=== PATIENT | male | born 1965 | race Caucasian/White ===

== ENCOUNTER 2019-11-11 10:23 | Emergency (ER) | payer OTHER, SELFPAY ==
[2019-11-11 10:28] VITALS: BP 141/91; PULSE 78; RESP 19; TEMP 36.6; O2SAT 98; BMI 24.1
--- NOTE | 2019-11-11 10:32 | ED_ITS ---
Entered by Barbara Acosta, acting as scribe for HPI - General Adult General: Chief complaint: Allergic Reaction Stated complaint: STING AND USED EPI Time Seen by Provider: 11/11/19 10:34 History of Present Illness: HPI narrative: 53 yo male presents with wasp sting. Pt states that he used his Epi. Pt states that he is nauseated right now. Pt states that he has severe allergic reactions to wasp stings, that's why has the Epi. Pt states that he used the Epi at about 0635am. Pt states that his breathing feels okay. MD complaint: wasp sting, epi use Onset (ago): hour(s) (4) Location: upper extremity Associated symptoms: Deny chest pain, dyspnea, malaise, nausea, rash or vomiting Review of Systems Const: Denies: fever, chills, body aches, change in appetite, fatigue or malaise ENMT: Denies: throat pain, ear pain, nasal discharge or nasal congestion Card: Denies: chest pain, edema, shortness of breath on exertion or shortness of breath when lying down Resp: Denies: shortness of breath, productive cough or non-productive cough GI: Denies: abdominal pain, nausea, vomiting, vomiting blood, coffee grounds in vomit, diarrhea, constipation, bloating, blood in stool or black tarry stool : Denies: flank pain, painful urination, urinary frequency or urinary urgency Skin/Breast: Denies: rash or itching PFSH ED PFSH: Social History Smoking and tobacco status: never smoked Physical Exam Const: COMMON NORMALS: no apparent distress GENERAL APPEARANCE: cooperative and comfortable ORIENTATION/CONSCIOUSNESS: Yes awake, Yes oriented to person, Yes oriented to place and Yes oriented to time HENMT: COMMON NORMALS: normocephalic, head/scalp atraumatic, hearing grossly normal bilaterally, external ears normal, EAC's normal, TM's normal bilaterally, nasal mucous membranes and turbinates normal, moist oral mucous membranes and oropharynx normal HEAD & SCALP: normocephalic and atraumatic NOSE: nasal mucous membranes and turbinates normal EXTERNAL EAR: Yes external ears normal EXTERNAL AUDITORY CANAL: EAC's normal TYMPANIC MEMBRANE: TM's normal bilaterally Eye: COMMON NORMALS: PERRL, EOMs intact bilaterally, conjunctivae normal and no scleral icterus CONJUNCTIVA: Yes conjunctivae normal PUPIL: Yes PERRL Neck/C-Spine: COMMON NORMALS: full ROM, no lymphadenopathy, supple and no JVD Lymph: LYMPHATIC: no lymphadenopathy noted and no lymphedema noted Resp: COMMON NORMALS: normal respiratory effort, no retractions, no use of accessory muscles and clear to auscultation bilaterally AUSCULTATION: clear to auscultation bilaterally Cardio: COMMON NORMALS: no JVD, regular rate, regular rhythm and no murmurs RATE: regular rate RHYTHM: regular rhythm GI: COMMON NORMALS: soft to palpation and no hepatosplenomegaly AUSCULTATION: Yes normoactive bowel sounds PALPATION: Yes soft, No tender, No guarding and Yes no hepatosplenomegaly Extremity: COMMON NORMALS: normal to inspection, normal capillary refill, no clubbing, cyanosis or edema, no calf tenderness and no pedal edema Neuro: SENSORIUM/ORIENTATION: Yes oriented to person, Yes oriented to place and Yes oriented to time Skin: NARRATIVE SKIN EXAM: Localized swelling to the heel of the left hand in the distal volar forearm no erythema no induration. Course Vital Signs: Vital signs: Vital Signs Temperature 97.8 F 11/11/19 10:28 Pulse Rate 68 11/11/19 12:00 Respiratory Rate 17 11/11/19 12:00 Blood Pressure 112/68 11/11/19 12:00 Pulse Oximetry 98 11/11/19 12:00 MDM - General Adult MDM Narrative: Medical decision making narrative: Localized reaction to an insect sting on his left arm there is only moderate swelling. He has no respiratory difficulties no tachycardia use the EpiPen about 4-1/2 or more hours ago we will go ahead and discharge him home have him follow-up with primary care and given a prescription for 2 EpiPen's. Discharge Plan Discharge Patient Disposition: Home, Self-Care Clinical Impression: Allergic reaction to insect sting Condition: Stable Prescriptions: New Medrol (Riaz) 4 mg tablets,dose pack See Rx Instructions .ROUTE .COMPLEX Qty: 21 RF: 0 hydroxyzine HCl 25 mg tablet 25 mg PO Q6H PRN (Reason: itching) Qty: 20 RF: 0 epinephrine 0.3 mg/0.3 mL auto-injector 0.3 mg IM Q15M PRN (Reason: anaphylaxis) 2 Days Qty: 2 RF: 0 Discharge Orders: Discharge Order (Routine); Ordered 11/11/19 Ordered By: Justin Baird Discharge Diet: Usual diet Discharge Activity: Resume usual activity Activity Restrictions/Additional Instructions: Follow-up with your primary care doctor as needed Discharge Date/Time: 11/11/19 12:00 Coding Level of Care Code ED Printing Mechanist for Chg Fwd Exam Comprehensive The documentation recorded by the Dave goddard Kialy, accurately reflects the service I personally performed and the decisions made by , Justin Baird, Nov 11, 2019 10:23
[2019-11-11 10:38] VITALS: O2SAT 99
--- NOTE | 2019-11-11 10:46 | ECG_ITS ---
Measurements Intervals [place] Rate: 72 P: 43 [place]: 159 QRS: 57 QRSD: 82 T: 53 QT: 368 QTc: 405 SINUS RHYTHM No previous ECG available for comparison Electronically Signed On 11-12-2019 9:42:42 CDT by Alia Gupta M.D. [email or web address]
[2019-11-11] MEDS: diphenhydrAMINE 50 mg Capsule PO (10:49)
[2019-11-11 12:00] VITALS: BP 112/68; PULSE 68; RESP 17; O2SAT 98
--- NOTE | 2019-11-14 10:31 | DCPLANNER ---
unit manager had message to speak with patient about getting established with a primary care physician. unit manager called patient at phone number [phone], was unable to speak with patient at this time. unit manager left a voicemail for patient to return embedded case manager phone call.
== END 2019-11-11 12:00 | disposition home or self-care (01) ==
PROVIDERS: Emergency Provider Family Medicine; Family Provider Family Medicine; PCP Family Medicine
DX: T63.461A Toxic effect of venom of wasps, accidental (unintentional), initial encounter (principal); M79.89 Other specified soft tissue disorders
CPT/HCPCS: 12345; 93005; 96374; 96375; 99283; J2930; Q0163

== ENCOUNTER → 2020-09-12 14:24 | Outpatient (BNVA) | payer OTHER, SELFPAY | PROVIDERS: Family Provider Family Medicine; PCP Family Medicine; Visit Provider Family Medicine | DX: Z20.828 Contact with and (suspected) exposure to other viral communicable diseases (principal) | CPT/HCPCS: 87635 ==

== ENCOUNTER 2020-10-17 09:00 | Outpatient (CLI) | payer OTHER, SELFPAY ==
--- NOTE | 2020-10-17 09:00 | CT_ITS ---
WS: [id number] CT ABDOMEN PELVIS TECHNIQUE: Contrast-enhanced CT of the abdomen and pelvis with coronal and sagittal reformatted image s. CLINICAL INFORMATION: ABDOMINAL PAIN, DIARRHEA, FUNCTIONAL COMPARISON: 2 25,019 DLP: 1005.[address] scans at [facility] use at least one of these dose optimization techniques: automat ed exposure control; mA and/or kV adjustment per patient size (includes targeted exams where dose is matched to clinical indication); or iterative reconstruction. FINDINGS: Diffuse fatty infiltration of the liver. Portal vein and splenic vein are patent. Slight hazy groundg lass infiltrates in the lung bases. Recommend correlation for pneumonitis. Adrenal glands are normal. Normal spleen. Normal pancreas. Gallbladder is normal. Normal caliber abdominal aorta. Adrenal glands are normal. Normal renal parenchymal enhancement. No h ydronephrosis. No abdominal or pelvic lymphadenopathy. Tiny fat-containing umbilical hernia. Sigmoid diverticulosis. No evidence of acute diverticulitis. No evidence of small or large bowel obst ruction. Dense right colon and transverse colon constipation. Prominent prostate with calcification m easuring 3.9 cm. Disc space narrowing worse L5-S1. Central disc protrusion L3-4 with moderate central canal stenosis. Mild central canal stenosis L5-S1. CT/CT abdomen pelvis w con* [id number] IMPRESSION: 1. Diffuse fatty infiltration of the liver 2. Normal renal parenchymal enhancement. No hydronephrosis. 3. Dense right colon and transverse colon constipation. 4. Diverticulosis sigmoid colon. No evidence of acute diverticulitis. 5. Slightly prominent prostate measuring 3.8 cm. Recommend correlation PSA. 6. No other significant findings.
[2020-10-17] MEDS: iohexol 300 mg/mL 50 mL Btl PO (09:13)
[2020-10-17] MEDS: iohexol 300 mg/mL 100 mL Btl IV (10:56)
== END 2020-10-17 09:01 | disposition home or self-care (01) ==
LOC: RADWPI 09:04
PROVIDERS: PCP Family Medicine; Visit Provider Family Medicine
DX: R10.9 Unspecified abdominal pain (principal); K59.1 Functional diarrhea; N40.0 Benign prostatic hyperplasia without lower urinary tract symptoms; K57.30 Diverticulosis of large intestine without perforation or abscess without bleeding; K76.0 Fatty (change of) liver, not elsewhere classified
CPT/HCPCS: 74177; Q9967

== ENCOUNTER → 2020-11-01 10:49 | Outpatient (BNVA) | payer OTHER, SELFPAY | PROVIDERS: PCP Family Medicine; Visit Provider Surgery | DX: R19.4 Change in bowel habit (principal); Z20.822 Contact with and (suspected) exposure to COVID-19 | CPT/HCPCS: 87635 ==

== ENCOUNTER 2020-12-04 06:58 | Day surgery (SDC) | payer OTHER, SELFPAY ==
[2020-12-04 07:30] VITALS: BP 127/82; PULSE 87; RESP 18; TEMP 36.2; O2SAT 99
[2020-12-04 07:39] LABS: Glucose Point of Care 148 mg/dL (70-110)
--- NOTE | 2020-12-04 07:51 | ANES.PREANE2 ---
Pre-Anesthetic Assessment Pre-Anesthetic Assessment: Height/Weight: Height 1.65 m Weight 65.771 kg Temp Pulse Resp BP Pulse Ox 97.1 F L 87 18 127/82 99 12/04/20 07:30 12/04/20 07:30 12/04/20 07:30 12/04/20 07:30 12/04/20 07:30 Preop Diagnosis: diagnostic Proposed Procedure: Operation Date: 12/04/20 08:30 Proposed Procedures p Colonoscopy 03774 R19.4(Not Applicable) - Aravind Richter MD Was Beta Bryan taken within 24 hours: N/A Was Clonidine taken within 24 hours: N/A Last intake: Intake Last Liquid Date 12/04/20 Last Liquid Time 01:30 Last Solid Date 12/02/20 Last Solid Time 18:00 Social: Social History: No alcohol and No tobacco Exam: Pre-Anes Outpt Exam: alert, oriented x 3, clear to auscultation bilaterally and regular rate & rhythm Airway: Submandibular: WNL Cervical ROM: WNL MP: 2 Dentition: Full GI: GI: GERD Metabolic: Metabolic: DM Anesthetic Plan: ASA status: 2 Anesthesia: MAC Risk of > 500 ml blood loss (7ml/kg in children): No PFSH Anesthesia PFSH: Medical History (Updated 10/22/20 @ 14:44 by Aravind Richter MD) Depression Diabetes Family History (Updated 10/22/20 @ 14:28 by Alix Herrera) Father CAD (coronary artery disease) Diabetes Sister Cancer Diabetes Mother Diabetes Social History (Updated 10/22/20 @ 14:29 by Alix Herrera) Smoking and tobacco status: never smoked Alcohol intake: never Lives independently: Yes Household members: none Data Anesthesia Other Labs: Laboratory Results - last 48 hr 12/04/20 07:35 POC Glucose 148 H Cardiac Studies: No Data to Display
[2020-12-04] MEDS: sodium chloride 0.9% 1,000 ML 30 ML IV (08:10)
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
[2020-12-04 09:36] VITALS: BP 98/67; PULSE 78; RESP 18; TEMP 36.2; O2SAT 100
[2020-12-04 09:52] VITALS: BP 111/68; PULSE 76; RESP 16; O2SAT 99
--- NOTE | 2020-12-04 10:15 | ANE.PACU2 ---
Inpatient post-anesthesia follow up: Airway intact: Yes Vital signs: Temperature 97.2 F Pulse Rate 76 Respiratory Rate 16 Blood Pressure 111/68 Pulse Oximetry 99 Oxygen Delivery Me thod Room Air Oxygen Flow Rate Fraction of Inspir ed Oxygen Hydration adequate: Yes Nausea and vomiting: No Mental status: Baseline
== END 2020-12-04 10:00 | disposition home or self-care (01) ==
PROVIDERS: PCP Family Medicine; Visit Provider Surgery
PROC: 0DJD8ZZ Inspection of Lower Intestinal Tract, Via Natural or Artificial Opening Endoscopic (ICD-10-PCS; CPT 45378; principal; 2020-12-04 08:30)
DX: R19.7 Diarrhea, unspecified (principal); F32.9 Major depressive disorder, single episode, unspecified; E11.9 Type 2 diabetes mellitus without complications; Z82.49 Family history of ischemic heart disease and other diseases of the circulatory system; Z83.3 Family history of diabetes mellitus
CPT/HCPCS: 36416; 45380; 82962; 83630; 84311; 87493; 87506; 88305; 96360; J2704; J7030

== ENCOUNTER → 2021-12-18 11:46 | Outpatient (BNVA) | payer BC, MEDICAID, SELFPAY | PROVIDERS: PCP Family Medicine; Visit Provider Family Medicine | DX: E11.65 Type 2 diabetes mellitus with hyperglycemia (principal); W57.XXXA Bitten or stung by nonvenomous insect and other nonvenomous arthropods, initial encounter | CPT/HCPCS: 80053; 80061; 82043; 83036; 83721; 85025 ==

== ENCOUNTER → 2022-03-18 10:34 | Outpatient (BNVA) | payer BC, MEDICAID, SELFPAY | PROVIDERS: PCP Family Medicine; Visit Provider Family Medicine | DX: E11.65 Type 2 diabetes mellitus with hyperglycemia (principal); E78.1 Pure hyperglyceridemia | CPT/HCPCS: 80053; 80061; 83036; 83721 ==

== ENCOUNTER → 2023-10-20 10:28 | Outpatient (BNVA) | payer BC, MEDICAID, SELFPAY | PROVIDERS: PCP Family Medicine; Visit Provider Registered Nurse Neonatal Intensive Care | DX: R42 Dizziness and giddiness (principal) | CPT/HCPCS: 82962 ==

== ENCOUNTER → 2023-12-10 14:05 | Outpatient (BNVA) | payer MEDICARE, BC, MEDICAID, SELFPAY | PROVIDERS: PCP Family Medicine; Visit Provider Family Medicine | DX: E11.65 Type 2 diabetes mellitus with hyperglycemia (principal); E11.9 Type 2 diabetes mellitus without complications | CPT/HCPCS: 80053; 80061; 82043; 83036; 85025 ==

== ENCOUNTER → 2024-02-16 11:44 | Outpatient (BNVA) | payer MEDICARE, BC, MEDICAID, SELFPAY | PROVIDERS: PCP Family Medicine; Visit Provider Family Medicine Adult Medicine | DX: E78.1 Pure hyperglyceridemia (principal); E11.65 Type 2 diabetes mellitus with hyperglycemia; Z91.030 Bee allergy status; E78.5 Hyperlipidemia, unspecified; J30.9 Allergic rhinitis, unspecified; E11.9 Type 2 diabetes mellitus without complications; Z79.4 Long term (current) use of insulin; K21.9 Gastro-esophageal reflux disease without esophagitis; G47.00 Insomnia, unspecified | CPT/HCPCS: 80053; 83036; 84443; 85025 ==

== ENCOUNTER → 2024-04-11 10:37 | Outpatient (BNVA) | payer MEDICARE, MEDICAID, SELFPAY | PROVIDERS: PCP Family Medicine; Visit Provider Nurse Practitioner Family | DX: R39.9 Unspecified symptoms and signs involving the genitourinary system (principal) | CPT/HCPCS: 81000 ==

== ENCOUNTER → 2024-04-20 13:22 | Outpatient (BNVA) | payer MEDICARE, MEDICAID, SELFPAY | PROVIDERS: PCP Family Medicine; Visit Provider Registered Nurse Neonatal Intensive Care | DX: R39.9 Unspecified symptoms and signs involving the genitourinary system (principal) | CPT/HCPCS: 81000; 87086 ==

== ENCOUNTER → 2024-05-11 10:04 | Outpatient (BNVA) | payer MEDICARE, MEDICAID, SELFPAY | PROVIDERS: PCP Family Medicine; Referring Provider Family Medicine Adult Medicine; Visit Provider Internal Medicine | DX: E11.9 Type 2 diabetes mellitus without complications (principal); E78.1 Pure hyperglyceridemia; E11.65 Type 2 diabetes mellitus with hyperglycemia | CPT/HCPCS: 36415; 80053; 80061; 82044; 83036; 83721 ==